=== PATIENT | female | born 1975 | race Asian ===

== ENCOUNTER 2018-02-17 13:40 | Inpatient (IN) | payer OTHER ==
[~2018-02-17] VITALS: Ht 157.5 cm; Wt 90.7 kg
[2018-02-17] MEDS ORDERED: OXYTOCIN/0.9 % SODIUM CHLORIDE 1,000 ML IV SCH (16:32)
[2018-02-17] MEDS ORDERED: NALBUPHINE HCL 10 MG/ML AMP IVP PRN (16:45)
[2018-02-17] MEDS ORDERED: TERBUTALINE SULFATE 1 MG/ML VIAL SUBCUT ONE (16:45)
[2018-02-17 17:25] LABS: HEMATOCRIT 32.5 % (36-48); HEMOGLOBIN 10.7 g/dL (12.0-16.0); MEAN CORPUSCULAR HEMOGLOBIN 28 pg (27-31); MEAN CORPUSCULAR HGB CONC 33 % (32-36); MEAN CORPUSCULAR VOLUME 84 fL (79.0-98.0); PLATELET COUNT (AUTO) 281 K/uL (130-430); RED BLOOD CELL COUNT(AUTO) 3.85 MIL/uL (4.2-6.2); RED CELL DISTRIBUTION WIDTH 13.7 % (9.0-15.0); WHITE BLOOD COUNT (AUTO) 9.3 K/uL (4.8-10.8)
[2018-02-17] MEDS: LR 1,000 ML IV SCH ×3 (17:40→21:19)
[2018-02-17 17:54] LABS: ATYPICAL LYMPHOCYTES % 0 % (0-0); BAND % (MANUAL) 0 % (0-6); BASOPHILS % (MANUAL) 0 % (0-2); EOSINOPHILS % (MANUAL) 2 % (0-7); LYMPHOCYTES % (MANUAL) 20 % (20-46); MONOCYTES % (MANUAL) 6 % (0-11)
[2018-02-17 18:34] VITALS: BP_SYST 128
[2018-02-17] MEDS ORDERED: fentaNYL CITRATE/PF 100 MCG/2 ML AMP ONE (19:19)
[2018-02-17] MEDS ORDERED: ROPIVACAINE 0.2% 100 ML ONE (19:19)
[2018-02-17] MEDS ORDERED: FENT2mCg/mL-ROPIVA0.2%/NS EPID 100 ML EP SCH (19:45)
[2018-02-17] MEDS ORDERED: LR 500 ML IV ONE (19:45)
[2018-02-17] MEDS ORDERED: ePHEDrine sulfate 50 MG/ML VIAL IVP ONE (21:15)
[2018-02-17] MEDS ORDERED: ONDANSETRON HCL 4 MG/2 ML VIAL ONE (21:23)
[2018-02-17] MEDS: ONDANSETRON HCL 4 MG/2 ML VIAL IVP PRN (22:02)
[2018-02-18] MEDS ORDERED: ROPIVACAINE 0.2% 100 ML ONE ×3 (02:49→15:49)
[2018-02-18] MEDS: LR 1,000 ML IV SCH (09:31)
[2018-02-18] MEDS: ONDANSETRON HCL 4 MG/2 ML VIAL IVP PRN (10:30)
[2018-02-18] MEDS ORDERED: fentaNYL CITRATE/PF 100 MCG/2 ML AMP ONE (14:24)
[2018-02-18] MEDS ORDERED: OXYTOCIN/0.9 % SODIUM CHLORIDE 1,000 ML IV ONE (17:17)
[2018-02-18] MEDS ORDERED: HYDROcodone/ACETAMIN 5-325 MG TAB (NORCO/ VICODIN) PO PRN (17:30)
[2018-02-18] MEDS ORDERED: OXYCODONE/ACETAMINOPHEN 5-325 TABLET PO PRN (17:30)
[2018-02-18] MEDS ORDERED: RHO(D) IMMUNE GLOBULIN/MALTOSE 1500 UNITS/1.3 ML (WINHRO) IM PRN (17:30)
[2018-02-18] MEDS ORDERED: HYDROCORTISONE 0.5%, 28.35 GM TOPICAL CREAM TP PRN (17:30)
[2018-02-18] MEDS ORDERED: MEASLES,MUMPS&RUBELLA VACC/PF 12500 UNIT/0.5 ML VIAL SUBQ PRN (17:30)
[2018-02-18] MEDS ORDERED: WITCH HAZEL LEAF 1 MED.PAD MED.PAD TP PRN (17:30)
[2018-02-18] MEDS ORDERED: DERMOPLAST SPRAY TP PRN (17:30)
[2018-02-18] MEDS ORDERED: ANUSOL 1 EA SUPP.RECT (PREPARATION H) RC PRN (17:30)
[2018-02-18] MEDS ORDERED: LANOLIN 7 GM OINT. TP PRN (17:30)
[2018-02-18] MEDS ORDERED: DIPH-TET-PERTUS Vaccine 0.5 ML VIAL (ADACEL) I.M. PRN (17:30)
[2018-02-18] MEDS: IBUPROFEN 600 MG TABLET PO SCH ×2 (17:55→23:43)
[2018-02-18] MEDS: OXYCODONE/ACETAMINOPHEN 5-325 TABLET PO PRN (18:47)
[2018-02-18] MEDS ORDERED: TEMAZEPAM 15 MG CAPSULE PO PRN (21:00)
[2018-02-19] MEDS: IBUPROFEN 600 MG TABLET PO SCH ×3 (06:03→17:31)
[2018-02-19 07:49] LABS: BASOPHILS % (AUTO) 0.2 % (0.0-2.0); EOSINOPHILS # (AUTO) 0.2 K/uL (0.0-0.4); EOSINOPHILS % (AUTO) 1.1 % (0.0-4.0); HEMATOCRIT 26.8 % (36-48); LYMPHOCYTES # (AUTO) 2.3 K/uL (1.0-5.5); LYMPHOCYTES % (AUTO) 14.4 % (20.5-51.5); MEAN CORPUSCULAR HEMOGLOBIN 28 pg (27-31); MEAN CORPUSCULAR HGB CONC 33 % (32-36); MEAN CORPUSCULAR VOLUME 84 fL (79.0-98.0); MONOCYTES % (AUTO) 6.2 % (1.7-9.3); NEUTROPHILS # (AUTO) 12.3 K/uL (1.8-7.7); NEUTROPHILS % (AUTO) 78.1 % (40.0-70.0); PLATELET COUNT (AUTO) 272 K/uL (130-430); RED CELL DISTRIBUTION WIDTH 14.1 % (9.0-15.0)
[2018-02-19 08:24] LABS: WHITE BLOOD COUNT (AUTO) 15.8 K/uL (4.8-10.8)
[2018-02-19] MEDS: DOCUSATE SODIUM 100 MG CAPSULE PO PRN (21:14)
[2018-02-20] MEDS: IBUPROFEN 600 MG TABLET PO SCH ×5 (00:32→22:29)
[2018-02-20] MEDS: DOCUSATE SODIUM 100 MG CAPSULE PO PRN (11:26)
[2018-02-20] MEDS: OXYCODONE/ACETAMINOPHEN 5-325 TABLET PO PRN ×2 (17:33→22:29)
== END 2018-02-20 23:00 | disposition home or self-care (01) | DRG 807 ==
LOC: SPU 13:40 → OBSVTOIN 16:35 → SPU 02-18 17:30
PROVIDERS: ADMIT Specialist; ATTEND Specialist
PROC: 10E0XZZ Delivery of Products of Conception, External Approach (ICD-10-PCS; principal; 2018-02-18)
PROC: 10907ZC Drainage of Amniotic Fluid, Therapeutic from Products of Conception, Via Natural or Artificial Opening (ICD-10-PCS; 2018-02-18)
PROC: 3E0R3BZ Introduction of Anesthetic Agent into Spinal Canal, Percutaneous Approach (ICD-10-PCS; 2018-02-18)
PROC: 00HU33Z Insertion of Infusion Device into Spinal Canal, Percutaneous Approach (ICD-10-PCS; 2018-02-18)
PROC: 10S0XZZ Reposition Products of Conception, External Approach (ICD-10-PCS; 2018-02-18)
PROC: 3E033VJ Introduction of Other Hormone into Peripheral Vein, Percutaneous Approach (ICD-10-PCS; 2018-02-18)
DX: O32.1XX2 Maternal care for breech presentation, fetus 2 (principal); Z37.2 Twins, both liveborn; O30.003 Twin pregnancy, unspecified number of placenta and unspecified number of amniotic sacs, third trimester; O42.913 Preterm premature rupture of membranes, unspecified as to length of time between rupture and onset of labor, third trimester; Z3A.36 36 weeks gestation of pregnancy
CPT/HCPCS: 36415; 85007; 85025; 85027; 86592; 86886; 86900; 86901; 88305; 88307; 90715; 94760; A4618; G0378; J2405; J2590; J2795; J3010; J7120